=== PATIENT | female | born 1950 | race Hispanic/Latino ===

== ENCOUNTER → 2020-02-26 | Outpatient (CLI) | payer OTHER ==
[~2020-02-26] MED LIST: AMLO5TAB9 PO; ATEN50TA PO; CHOL100046 PO; GLIP5TAB11 PO; LEVO250T2 PO; LOSA100T58 PO; METF-446 PO; SIMV40TA59 PO
== END | disposition home or self-care (01) ==
LOC: RAH 11:15
PROVIDERS: ATTEND Family Medicine
DX: Z12.31 Encounter for screening mammogram for malignant neoplasm of breast (principal); N64.89 Other specified disorders of breast
CPT/HCPCS: 77067

== ENCOUNTER → 2024-06-26 | Outpatient (CLI) | payer OTHER ==
[~2024-06-26] MED LIST changes: +AMLO-257 PO; -AMLO5TAB9 PO; -GLIP5TAB11 PO; +GLIP5TAB15 PO; -LOSA100T58 PO; +LOSA100T59 PO
--- NOTE | 2024-06-27 10:04 | HMCSR ---
APPROVED REPORT EXAM: Two-dimensional and M-mode echocardiogram with Doppler and color Doppler. INDICATION ICD: I25.10 Atherosclerotic heart disease of [place] coronary artery without angina pectoris 2D Dimensions RVDd4.0 cmLVEF(%)64.4 (>50%)LVED Vol(simp.)74.0 mL IVSd0.9 (0.7-1.1cm)FS(%)35 %LVES Vol(simp.)28.0 mL LVDd4.3 (3.8-5.6cm)LA (2D)4.6 (1.6-4.0cm)LVEF(%, simp.)62 % PWd0.8 (0.7-1.1cm)Ao Root(2D)2.5 (2.0-3.7cm)LA ESV INDEX (4CH)25.00 mL/m2 IVSs1.0 cmLVOT diam2.0 (1.8-2.4cm)LA ESV INDEX (2CH)21.20 mL/m2 LVDs2.8 (2.5-4.0cm)IVC diam1.1 cmLA ESV INDEX (BP)23.00 mL/m2 PWs1.7 cm M-Mode Dimensions EPSS0.8 cm LA (MM)4.7 (1.6-4.0cm) Ao Root(MM)2.6 (2.0-3.7cm) Aortic Valve AoV VTI0.3 mAo Mean GR3.0 mmHgLVOT VTI0.22 m CHRISTIAN (VMAX)2.6 cm2AVA (VTI) 2.6 cm2 Mitral Valve MV E Vmax71.1 cm/sDECEL Nnfs964 ms MV A Vmax93.8 cm/sP 1/2 T75 ms E/A ratio0.8MVA (PHT)2.9 cm2 MR Max PG68 mmHg TDI E/E' Chnhjm55.5E/E' [id number] Medial E' Peak V4.30 cm/sLateral E' Peak V3.50 cm/s Pulmonary Valve PV VTI0.23 mPV Mean GR3 mmHg Tricuspid Valve TR Vmax2.3 m/sRAP (EST) 3 [id number] mmHg TR Peak GR22.0 mmHg Left Ventricle The left ventricle is normal size. Normal wall motion There is normal left ventricular wall thickness . LVEF is 60-65%. indeterminate dastolic dysfunction Right Ventricle The right ventricle is normal size. The right ventricular systolic function is normal. Atria The left atrium size is normal. Lipomatous atrial septal hypertrophy The right atrium size is normal. Aortic Valve Aortic valve is trileaflet and opens well. Non coronary cusp leaflet is mildly thickened. No aortic r egurgitation is present. There is no aortic valvular stenosis. Mitral Valve The mitral valve is normal in structure. There is mild mitral valve regurgitation noted.. There is no mitral valve stenosis. Tricuspid Valve The tricuspid valve is normal in structure. There is mild to moderate of tricuspid valve regurgitatio n noted. Pulmonic Valve Not well seen There is no pulmonic valvular regurgitation. Great Vessels The aortic root is normal in size. The IVC is normal in size and collapses >50% with inspiration. Pericardium There is no pericardial effusion. Other Information Quality : Adequate Conclusion LVEF is 60-65%. indeterminate dastolic dysfunction There is normal left ventricular wall thickness. The left ventricle is normal size. Normal wall motion Aortic valve is trileaflet and opens well. Non coronary cusp leaflet is mildly thickened. There is mild to moderate of tricuspid valve regurgitation noted. Lipomatous atrial septal hypertrophy There is no pericardial effusion. Normal pulmonary pressures Study quality was adequate
== END | disposition home or self-care (01) ==
LOC: RAH 13:08
PROVIDERS: ATTEND Internal Medicine Cardiovascular Disease
DX: I08.1 Rheumatic disorders of both mitral and tricuspid valves (principal); I25.10 Atherosclerotic heart disease of native coronary artery without angina pectoris; D17.79 Benign lipomatous neoplasm of other sites
CPT/HCPCS: 93306

== ENCOUNTER → 2024-11-20 | Outpatient (CLI) | payer OTHER ==
--- NOTE | 2024-11-21 08:57 | HMCIMG ---
Exam Type: MAMMO SCREENING BILATERAL Clinical Information: ROUTINE SCREENING Comparison: February 26, 2020 Technique: Mammogram with CAD was performed with CC and MLO projections. CAD shows no worrisome regions. FINDINGS: The breasts are heterogeneously dense, which may obscure small masses. No dominant mass or suspicious microcalcification identified. There is no nipple retraction or skin thickening. Benign-appearing calcifications are seen. CAD shows no worrisome regions. IMPRESSION: 1. No mammographic signs of malignancy. 2. Routine follow-up recommended. CATEGORY 2: BENIGN FINDINGS Note: A negative x-ray should not delay biopsy if a dominant or clinically suspicious mass is present, since 8-10% of cancers are not identified by mammography. Dense breasts may obscure an underlying neoplasm.
== END | disposition home or self-care (01) ==
LOC: RAH 14:06
PROVIDERS: ATTEND Family Medicine
DX: Z12.31 Encounter for screening mammogram for malignant neoplasm of breast (principal); R92.333 Mammographic heterogeneous density, bilateral breasts
CPT/HCPCS: 77067